=== PATIENT | male | born 1975 | race African-American/Black ===

== ENCOUNTER 2016-12-21 03:42 | Emergency (ER) | payer OTHER ==
[2016-12-21] MEDS ORDERED: Albuterol HFA INHALER* 8 gm MDI INH ONE (04:49)
[2016-12-21] MEDS ORDERED: Albuterol/Ipratropium NEB.SOL* Albuterol 2.5 MG/Ipratropium 0.5 MG 3 ML INH ONE (04:49)
[2016-12-21 05:49] VITALS: BP 130/87
--- NOTE | 2016-12-31 14:41 | ED ---
Rohini Montiel Alfonso, scribed for Jennifer Hollingsworth MD on 12/21/16 at 0441 . Complex/Multi-Sys Presentation - HPI Summary HPI Summary: This patient is a 41 year old M presenting to [facility] with a chief complaint of chest tightness since 4 hours ago. He reports finishing his inhaler prescription. The patient rates the pain 0/10 in severity. Symptoms aggravated by weather. Symptoms alleviated by nothing. Patient reports chills, coughing, and wheezing. Patient denies fever. Tobacco abuse disorder. PMHx includes asthma. - History Of Current Complaint Chief Complaint: EDShortnessOfBreath Time Seen by Provider: 12/21/16 04:25 Hx Obtained From: Patient Onset/Duration: Sudden Onset, Lasting Hours - 4, Still Present Timing: Constant Aggravating Factor(s): weather Alleviating Factor(s): nothing Associated Signs And Symptoms: Positive: Other - reports chills, coughing, and wheezing. Patient denies fever - Allergies/Home Medications Allergies/Adverse Reactions: Allergies Allergy/AdvReac Type Severity Reaction Status Date / Time Fish Allergy Allergy Severe Swelling Verified 12/21/16 03:46 Of Face,Lips,& Throat Peanut-containing Drug Allergy Severe Swelling Verified 12/21/16 03:46 Products Of Face,Lips,& Throat Nuts Allergy Swelling Uncoded 12/21/16 03:46 Of Face,Lips,& Throat Sea Food Allergy Swelling Uncoded 12/21/16 03:46 Of Face,Lips,& Throat PMH/Surg Hx/FS Hx/Imm Hx Endocrine/Hematology History: Denies: Hx Anticoagulant Therapy, Hx Diabetes, Hx Thyroid Disease Cardiovascular History: Denies: Hx Hypertension, Hx Pacemaker/ICD Respiratory History: Reports: Hx Asthma, Hx Seasonal Allergies Denies: Hx Chronic Obstructive Pulmonary Disease (COPD) GI History: Denies: Hx Ulcer History: Denies: Hx Renal Disease Sensory History: Denies: Hx Hearing Aid Neurological History: Denies: Hx Dementia, Hx Seizures Psychiatric History: Denies: Hx Panic Disorder, Hx Substance Abuse - Immunization History Date of Tetanus Vaccine: 2004 Date of Influenza Vaccine: never Infectious Disease History: No Infectious Disease History: Denies: Hx Clostridium Difficile, Hx Hepatitis, Hx Human Immunodeficiency Virus (HIV), Hx of Known/Suspected MRSA, Hx Shingles, Hx Tuberculosis, Hx Known/ Suspected VRE, Hx Known/Suspected VRSA, History Other Infectious Disease, Traveled Outside the [place] in Last 30 Days - Family History Known Family History: Positive: Diabetes Negative: Cardiac Disease, Hypertension, Respiratory Disease - Social History Alcohol Use: Rare Hx Substance Use: Yes Substance Use Type: Reports: Marijuana Substance Use Comment - Amount & Last Used: daily Hx Tobacco Use: Yes Smoking Status (MU): Former Smoker Type: Cigarettes Amount Used/How Often: 3-4 CIGS A DAY Length of Time of Smoking/Using Tobacco: OFF AN ON 16+ YEARS Have You Smoked in the Last Year: Yes Review of Systems Positive: Chills. Negative: Fever Positive: Cough, Other - chest tightness, wheezing All Other Systems Reviewed And Are Negative: Yes Physical Exam - Summary Physical Exam Summary: General: Well appearing, no pain distress Skin: Warm, Skin Color Reflects Adequate Perfusion, Dry Eyes: EOMI, RAS ENT: Pharynx normal, TMs normal Neck: Supple, nontender Respiratory: Breath sounds present, no rhonchi, no rales, no tachypnea, Expiratory wheezing diffusely Cardiovascular: RRR, no murmur, no rub, no gallop Abdomen: Soft, nontender, Non-distended, no guarding, no rebound Bowel: Present Musculoskeletal: JARRET, No edema Neuro: Sensory/motor intact, A&Ox3, CN intact 2-12 Psych: Affect/mood appropriate Triage Information Reviewed: Yes Vital Signs On Initial Exam: Initial Vitals Temp Pulse Resp BP Pulse Ox 98.1 F 106 20 136/84 95 12/21/16 03:44 12/21/16 03:44 12/21/16 03:44 12/21/16 03:44 12/21/16 03:44 Vital Signs Reviewed: Yes - [place] Coma Scale Coma Scale Total: 15 Diagnostics - Vital Signs Vital Signs Temp Pulse Resp BP Pulse Ox 12/21/16 03:44 98.1 F 106 20 136/84 95 - Laboratory Lab Statement: Any lab studies that have been ordered have been reviewed, and results considered in the medical decision making process. Complex Multi-Symp Course/Dx - Diagnoses Provider Diagnoses: Asthma exacerbation Discharge - Discharge Plan Condition: Stable Disposition: HOME Prescriptions: Albuterol/Ipratropium RESP(NF) [Combivent Respimat(NF)] 1 puff INH Q6H PRN #1 aer PRN Reason: Wheezing Patient Education Materials: Asthma (ED) Referrals: Abdulaziz Monroy MD [Primary Care Provider] - 3 Days Additional Instructions: RETURN TO THE EMERGENCY DEPARTMENT FOR CHANGING OR WORSENING SYMPTOMS. The documentation as recorded by the Rohini benedict Alfonso accurately reflects the service I personally performed and the decisions made by me, Jennifer Hollingsworth MD.
== END 2016-12-21 05:49 | disposition home or self-care (01) ==
LOC: ED 03:42
DX: J45.901 Unspecified asthma with (acute) exacerbation (principal); F12.90 Cannabis use, unspecified, uncomplicated; Z72.0 Tobacco use
CPT/HCPCS: 99282; A9270-GY

== ENCOUNTER → 2018-09-18 12:08 | Emergency (ER) | payer OTHER ==
[~2018-09-18 12:08] MED LIST: Albuterol HFA INHALER* 8 gm MDI INH ONE; Albuterol/Ipratropium RESP(NF) MDI (Combivent Respimat) INH ONE; predniSONE TAB* 50 MG PO ONE
--- NOTE | 2018-09-18 14:34 | ED ---
Respiratory - HPI Summary HPI Summary: Pt is a 43 y/o M presenting to the ED with a chief complaint of SOB, and wheezing due to running out of his inhalers. He states he has been out of his inhaler for 2-3 days, because he has been having to use it more d/t allergy season, and insurance will not cover it because it is too soon for him to refill the Rx. He states the inhaler that helps him most is the Combivent, and the out of pocket expense for this is $500. He denies sore throat, headache, dizziness, chest pain, or fever. He states he has had asthma since he was a small child. He states he has tried pills such as singulair before, but girlfriend with him states that he doesn't remember to take pills regularly, that carrying the inhaler with him works the best for his asthma. Pt has never seen a pulmonary doctor. Pt's girlfriend states she doesn't want him to wind up in the ICU like he did before when he went without treatment. Pt has an Advair diskus also, which he uses "sometimes". I attempted much education about asthma, anti-inflammatory meds such as singulair, and inhaled steroids. Pt still likes the idea of his inhalers the best for his asthma treatment. He notes that he has a nebulizer at home and "plenty of medication for that", as well as Advair, Proair, and Combivent, but the nebulizer "does not work for him" as he is usually walking to his destinations, and is not home to do treatments. Pt did use his nebulizer this am prior to coming to the ED. Pt's girlfriend is upset upon initial evaluation, presumably because pt had to wait in the WR prior to being seen in the conference room with me, due to multiple acute pts in the ED. Pt is not visibly SOB, speaks in full sentences, can walk without obvious SOB at the time he is seen by me. Vital signs at triage: BP 117/75, HR 84bpm, SaO2 93% with 20 respirations per minute. Home Medications-home nebulizer (used this am), advair (doesn't use regularly) , albuterol inhaler, combivent inhaler. Pt has run out of the albuterol inhaler and the combivent inhaler (last used 2 days ago). Prednisone listed below was given in ED, and pt is to continue it x 5 days. Medication Instructions Recorded Confirmed Type predniSONE TAB* [Deltasone TAB*] 50 mg PO DAILY #5 tab 09/18/18 Rx - History of Current Complaint Chief Complaint: EDShortnessOfBreath Stated Complaint: TROUBLE BREATHING PER PT Time Seen by Provider: 09/18/18 14:08 Hx Obtained From: Patient, Family/[employer] - girlfriend Onset/Duration: Gradual Onset, Lasting Days, Still Present Timing: Constant Initial Severity: Moderate Current Severity: Moderate Pain Intensity: 0 Character: Wheezing, Dyspnea on Exertion Sputum Amount: None Aggravating Factor(s): Weather Change Alleviating Factor(s): MDI (Frequency Of Use) - is overusing until he ran out 2 days ago. Insurance won't cover for several days. Is wheezing now and needs his inhalers. Associated Signs and Symptoms: SOB - Risk Factors Status Asthmaticus Risk Factors: Rx Non-Compliance - overuse of inhalers, misues of Advair, doesn't take pills, Smoking - Allergy/Home Medications Allergies/Adverse Reactions: Allergies Allergy/AdvReac Type Severity Reaction Status Date / Time Fish Containing Products Allergy Swelling Verified 09/18/18 12:13 Of Face,Lips,& Throat nut - unspecified Allergy Swelling Verified 09/18/18 12:13 Of Face,Lips,& Throat Nuts Allergy Swelling Uncoded 06/29/18 09:31 Of Face,Lips,& Throat Sea Food Allergy Swelling Uncoded 06/29/18 09:31 Of Face,Lips,& Throat PMH/Surg Hx/FS Hx/Imm Hx Previously Healthy: No Endocrine/Hematology History: Denies: Hx Anticoagulant Therapy, Hx Diabetes, Hx Thyroid Disease Cardiovascular History: Denies: Hx Hypertension, Hx Pacemaker/ICD Respiratory History: Reports: Hx Asthma, Hx Seasonal Allergies Denies: Hx Chronic Obstructive Pulmonary Disease (COPD) GI History: Denies: Hx Ulcer History: Denies: Hx Renal Disease Sensory History: Denies: Hx Hearing Aid Neurological History: Denies: Hx Dementia, Hx Seizures Psychiatric History: Denies: Hx Panic Disorder, Hx Substance Abuse - Surgical History Surgical History: None - Immunization History Date of Tetanus Vaccine: 2004 Date of Influenza Vaccine: never Infectious Disease History: No Infectious Disease History: Denies: Hx Clostridium Difficile, Hx Hepatitis, Hx Human Immunodeficiency Virus (HIV), Hx of Known/Suspected MRSA, Hx Shingles, Hx Tuberculosis, Hx Known/ Suspected VRE, Hx Known/Suspected VRSA, History Other Infectious Disease, Traveled Outside the [place] in Last 30 Days - Family History Known Family History: Positive: Diabetes, Other - no fam hx of asthma Negative: Cardiac Disease, Hypertension, Respiratory Disease - Social History Lives: With Family - girlfriend Alcohol Use: Rare Hx Substance Use: Yes Substance Use Type: Reports: Marijuana - smokes it Substance Use Comment - Amount & Last Used: daily Hx Tobacco Use: Yes Smoking Status (MU): Current Some Day Smoker - "1-2" every other day Type: Cigarettes Length of Time of Smoking/Using Tobacco: OFF AN ON 16+ YEARS Have You Smoked in the Last Year: Yes Review of Systems Negative: Fever Negative: Sore Throat Negative: Chest Pain Positive: Shortness Of Breath Gastrointestinal: Negative Genitourinary: Negative Musculoskeletal: Negative Skin: Negative Neurological: Negative - dizziness Negative: Headache Psychological: Normal All Other Systems Reviewed And Are Negative: Yes Physical Exam - Summary Physical Exam Summary: Appearance: well-appearing, no pain distress, well-nourished, comfortable, no respiratory distress when walking from to conference room, O2 sats normal on room air, afebrile Skin: Warm, color reflects adequate perfusion, dry Head: Normal Head/Face inspection, atraumatic Eyes: Conjunctiva clear ENT: Normal inspection, TM's clear, pharynx clear Neck: Supple, no nodes, no JVD Respiratory: Bilateral expiratory wheezes, no respiratory distress, speaking full sentences, ambulates normally, no accessory muscles of respiration, no pursed lip breathing Cardio: RRR, No murmur, pulses normal, brisk capillary refill Abdomen: Soft, nontender Bowel sounds: Present Musculoskeletal: Strength Intact/ROM intact, no calf tenderness, no edema. Psychological: Normal Neuro: Alert, muscle tone normal, no focal deficit Triage Information Reviewed: Yes Vital Signs On Initial Exam: Initial Vitals Temp Pulse Resp BP Pulse Ox 97.5 F 84 20 117/75 93 09/18/18 12:10 09/18/18 12:10 09/18/18 12:10 09/18/18 12:10 09/18/18 12:10 Vital Signs Reviewed: Yes Diagnostics - Vital Signs Vital Signs Temp Pulse Resp BP Pulse Ox 09/18/18 14:01 98.4 F 80 16 130/81 95 09/18/18 12:10 97.5 F 84 20 117/75 93 - Laboratory Lab Statement: Any lab studies that have been ordered have been reviewed, and results considered in the medical decision making process. Re-Evaluation - Re-Evaluation First Eval Re-Evaluation Time: 15:25 Change: Improved Comment: Pt received 2 puffs of an albuterol inhaler. Declines neb because he has it at home. Lungs clear upon re-eval. Pt is ready for discharge. Pt's pharmacy is called. Pt will be able to receive both his albuterol inhaler as well as his combivent inhaler with the way my Rx's are written. Disposition - Course Course Of Treatment: Pt is a 43 y/o M presenting to the ED with a chief complaint of SOB due to running out of his inhalers. He states he has been out of his inhaler for 2-3 days, because he has been having to use it more d/t allergy season, and insurance will not cover it because it is too soon for him to refill the Rx. He denies sore throat, headache, dizziness, chest pain, cough or fever. Pt does not feel he has an infectious process, so no labs or chest xray will be done, and no antibiotics are needed. Will give steroids for the anti-inflammatory effect, in addition to albuterol and combivent inhalers that pt is accustomed to using for his asthma. He notes that he has a nebulizer at home, as well as Advair, Proair, and Combivent, but the nebulizer does not work for him as he is usually walking to his destinations, instead of being home to do treatments. Vital signs at triage: BP 117/75, HR 84bpm, SaO2 93% with 20 respirations per minute. In the ED, the pt received Prednisone 50mg as well as 2 puffs of the albuterol inhaler. Pt is dispensed an albuterol inhaler that was used for him in the ED, for home use. His RX is increased from 1 puff q 4h to 2 puffs q 4 hrs prn. His combivent is also increased to 2 puffs q 4 hrs. Verified with pt's pharmacist that pt will be able to receive both inhalers, although pharmacist is out of stock for the combivent, so he will be able to receive that before 11am tomorrow (09/19/18). [facility] pharmacy did not have any combivent inhalers in stock. Pt declined a combivent neb, stating he had that at home. He is stable without wheezes or SOB after the albuterol inhalations and dose of prednisone 50mg, and will be sent home with a dx of asthma exacerbation. No labs or imaging were done. Pt and girlfriend are agreeable to this. Pt is advised to stop smoking. - Differential Dx - Cardiopulmonary Differential Diagnoses - Cardiopulmonary: Acute Dyspnea, Asthma, Bronchitis, Exacerbation Of COPD, Lower Resp Infection - Diagnoses Provider Diagnoses: Asthma exacerbation, Tobacco use disorder, mild, abuse, Marijuana smoker, Noncompliance with medication treatment due to overuse of medication Discharge - Sign-Out/Discharge Documenting (check all that apply): Patient Departure Patient Received Moderate/Deep Sedation with Procedure: No - Discharge Plan Condition: Stable Disposition: HOME Prescriptions: Albuterol HFA INHALER* [Ventolin HFA Inhaler*] 2 puff INH Q4H PRN #1 mdi PRN Reason: Sob/Wheezing Albuterol/Ipratropium RESP(NF) [Combivent Respimat(NF)] 2 puff INH Q4H PRN #1 aer PRN Reason: Sob/Wheezing LevoCETirizine TAB (NF) [Xyzal TAB (NF)] 5 mg PO DAILY #30 tab Montelukast Sodium TAB* [Singulair TAB*] 10 mg PO DAILY #30 tab predniSONE TAB* [Deltasone TAB*] 50 mg PO DAILY #5 tab Patient Education Materials: Asthma (ED) Referrals: Dolly Mendoza MD [Medical Doctor] - As Soon As Possible Abdulaziz Monroy MD [Primary Care Provider] - 2 Days Additional Instructions: We have given you a dose of your albuterol inhaler while in the ER and dispensed the remainder for you to use at home. Please use 2 puffs every four hours as needed. We have also given you a dose of prednisone. Try the singular and the levocetirizine pills also to see if they help your asthma. Your insurance should allow the prescriptions written today. Return to the ER if new or worsening symptoms. - Billing Disposition and Condition Condition: STABLE Disposition: Home - Attestation Statements Document Initiated by Leanderibnancy: Yes Documenting Scribe: Iris Joy Provider For Whom Ksenia is Documenting (Include Credential): Dr. Gloria Carter MD. Scribe Attestation: Iris Montiel, scribed for Dr. Gloria Carter MD. on 09/19/18 at 2346. Scribe Documentation Reviewed: Yes Provider Attestation: The documentation as recorded by the leanderibe, Iris Joy accurately reflects the service I personally performed and the decisions made by me, Dr. Gloria Carter MD. Status of Scribe Document: Viewed
[2018-09-18 15:21] VITALS: BP 131/86
== END | disposition home or self-care (01) ==
LOC: ED 12:08
DX: J45.901 Unspecified asthma with (acute) exacerbation (principal); Z72.0 Tobacco use; F12.10 Cannabis abuse, uncomplicated; Z91.19 Patient's noncompliance with other medical treatment and regimen
CPT/HCPCS: 99282; A9270-GY; J7512

== ENCOUNTER 2018-12-08 22:15 | Emergency (ER) | payer OTHER ==
[2018-12-08] MEDS ORDERED: predniSONE TAB* 20 MG PO ONE (22:41)
[2018-12-08] MEDS ORDERED: Albuterol 0.5% CONC NEB.SOL* 5 MG/ML 20 ml BOT INH ONE (22:41)
--- NOTE | 2018-12-08 22:48 | ED ---
Respiratory - HPI Summary HPI Summary: Patient is a 43 y/o M w/ Hx of asthma with complaints of SOB, chest congestion, and soreness at ribs area. Sx have been present for the past week. Patient has been taking his albuterol inhaler every 25 minutes. He has advair as well, which he has just started using 1-2 times daily. He is a current smoker. Patient denies any other medical issues. On triage, associated severity is rated 8/10, nothing is noted to aggravate/alleviate Sx. Home medications and allergies are reviewed. - History of Current Complaint Chief Complaint: EDAsthma Stated Complaint: ASTHMA Time Seen by Provider: 12/08/18 22:35 Hx Obtained From: Patient Onset/Duration: Lasting Weeks, Still Present Current Severity: Severe Pain Intensity: 8 Aggravating Factor(s): Nothing Alleviating Factor(s): Nothing Associated Signs and Symptoms: SOB, Chest Pain - soreness at ribs - Allergy/Home Medications Allergies/Adverse Reactions: Allergies Allergy/AdvReac Type Severity Reaction Status Date / Time Fish Containing Products Allergy Swelling Verified 12/08/18 22:18 Of Face,Lips,& Throat nut - unspecified Allergy Swelling Verified 12/08/18 22:18 Of Face,Lips,& Throat Nuts Allergy Swelling Uncoded 12/08/18 22:18 Of Face,Lips,& Throat Sea Food Allergy Swelling Uncoded 12/08/18 22:18 Of Face,Lips,& Throat Home Medications: Home Medications Albuterol inh POWDER (NF) [Proair Respiclick] 1 puff INH Q4H PRN 12/08/18 [ History Confirmed 12/08/18] PMH/Surg Hx/FS Hx/Imm Hx Endocrine/Hematology History: Denies: Hx Anticoagulant Therapy, Hx Diabetes, Hx Thyroid Disease Cardiovascular History: Denies: Hx Hypertension, Hx Pacemaker/ICD Respiratory History: Reports: Hx Asthma, Hx Seasonal Allergies Denies: Hx Chronic Obstructive Pulmonary Disease (COPD) GI History: Denies: Hx Ulcer History: Denies: Hx Renal Disease Sensory History: Denies: Hx Hearing Aid Neurological History: Denies: Hx Dementia, Hx Seizures Psychiatric History: Denies: Hx Panic Disorder, Hx Substance Abuse - Immunization History Date of Tetanus Vaccine: 2004 Date of Influenza Vaccine: never Infectious Disease History: No Infectious Disease History: Denies: Hx Clostridium Difficile, Hx Hepatitis, Hx Human Immunodeficiency Virus (HIV), Hx of Known/Suspected MRSA, Hx Shingles, Hx Tuberculosis, Hx Known/ Suspected VRE, Hx Known/Suspected VRSA, History Other Infectious Disease, Traveled Outside the [place] in Last 30 Days - Family History Known Family History: Positive: Diabetes, Other - no fam hx of asthma Negative: Cardiac Disease, Hypertension, Respiratory Disease - Social History Alcohol Use: Rare Hx Substance Use: Yes Substance Use Type: Reports: Marijuana - smokes it Substance Use Comment - Amount & Last Used: daily Hx Tobacco Use: Yes Smoking Status (MU): Current Some Day Smoker - "1-2" every other day Type: Cigarettes Amount Used/How Often: 3-4 CIGS A DAY Length of Time of Smoking/Using Tobacco: OFF AN ON 16+ YEARS Have You Smoked in the Last Year: Yes Review of Systems Positive: Chest Pain - soreness at ribs Respiratory: Other - congestion Positive: Shortness Of Breath All Other Systems Reviewed And Are Negative: Yes Physical Exam - Summary Physical Exam Summary: Appearance: Well-appearing, Well-nourished, lying in bed comfortably Skin: Warm, dry, no obvious rash Eyes: sclera anicteric, no conjunctival pallor ENT: mucous membranes moist, pharynx appears normal Neck: Supple, nontender Respiratory: Diffuse, expiratory wheezes with mild impairment of aeration. Cardiovascular: Normal S1, S2. No murmurs. Normal distal pulses in tibial and radial bilaterally. Abdomen: Soft, nontender, normal active bowel sounds present Musculoskeletal: Normal, Strength/ROM Intact Neurological: A&Ox3, awake and alert, mentation is normal, speech is fluent and appropriate Psychiatric: affect is normal, does not appear anxious or depressed Triage Information Reviewed: Yes Vital Signs On Initial Exam: Initial Vitals Temp Pulse Resp BP Pulse Ox 99.7 F 101 16 117/72 93 12/08/18 22:16 12/08/18 22:16 12/08/18 22:16 12/08/18 22:16 12/08/18 22:16 Vital Signs Reviewed: Yes Diagnostics - Vital Signs Vital Signs Temp Pulse Resp BP Pulse Ox 12/08/18 22:16 99.7 F 101 16 117/72 93 - Laboratory Lab Statement: Any lab studies that have been ordered have been reviewed, and results considered in the medical decision making process. Re-Evaluation - Re-Evaluation First Eval Re-Evaluation Time: 00:31 Change: Improved Comment: Patient's Sx are improved after medications. He was discharged to home and will follow up with PCP within three days. Disposition - Course Course Of Treatment: Patient is a 43 y/o M w/ Hx of asthma with complaints of SOB, chest congestion, and soreness at ribs area. Sx have been present for the past week. Patient has been taking his albuterol inhaler every 25 minutes. He has advair as well, which he has just started using 1-2 times daily. He is a current smoker. Patient denies any other medical issues. On physical exam, there are diffuse, expiratory wheezes with mild impairment of aeration. During ED course, patient received prednisone, 40 mg PO, and albuterol. He reports improvement in Sx after medications. Patient was discharged to home and advised to follow up with PCP within three days. - Diagnoses Provider Diagnoses: Asthma exacerbation Discharge ED - Sign-Out/Discharge Documenting (check all that apply): Patient Departure - discharge Patient Received Moderate/Deep Sedation with Procedure: No - Discharge Plan Condition: Improved Disposition: HOME Prescriptions: predniSONE TAB* [Deltasone 20 MG TAB*] 40 mg PO DAILY 5 Days #10 tab Patient Education Materials: Asthma (ED), How to Stop Smoking (ED) Referrals: Abdulaziz Monroy MD [Primary Care Provider] - 3 Days - Billing Disposition and Condition Condition: IMPROVED Disposition: Home - Attestation Statements Document Initiated by Ksenia: Yes Documenting Scribe: BREE OZUNA Provider For Whom Ksenia is Documenting (Include Credential): MELQUIADES MENDIETA MD Scribe Attestation: IBREE, scribed for MELQUIADES MENDIETA MD on 12/10/18 at 0517. Scribe Documentation Reviewed: Yes Provider Attestation: The documentation as recorded by the BREE benedict accurately reflects the service I personally performed and the decisions made by me, MELQUIADES MENDIETA MD Status of Scribe Document: Viewed
[2018-12-09] MEDS ORDERED: A lbuterol Hfa (PREPAK) 1 MDI - ED TAKE HOME DISPENSING ONLY INHH SCH (01:00)
[2018-12-09] MEDS ORDERED: Albuterol HFA INHALER* 8 gm MDI INH SCH (01:00)
[2018-12-09 01:48] VITALS: BP 129/82
== END 2018-12-09 00:33 | disposition home or self-care (01) ==
LOC: ED 22:15
DX: J45.901 Unspecified asthma with (acute) exacerbation (principal); R07.81 Pleurodynia; Z91.018 Allergy to other foods; Z91.013 Allergy to seafood; Z72.0 Tobacco use
CPT/HCPCS: 99282; A9270-GY; J7512; J7611

== ENCOUNTER 2019-04-03 17:04 | Emergency (ER) | payer OTHER ==
[2019-04-03] MEDS ORDERED: Albuterol/Ipratropium NEB.SOL* Albuterol 2.5 MG/Ipratropium 0.5 MG 3 ML INH ONE ×3 (17:23→19:53)
[2019-04-03] MEDS ORDERED: methylPREDNISolone 125 MG* 2 ML VIAL IV ONE (17:24)
[2019-04-03] MEDS ORDERED: Magnesium Sulfate 2 GM IV* 2 GM/50 ML BAG IVPB ONE (17:25)
[2019-04-03 17:56] LABS: ABS Eosinophils 0.3 10^3/ul (0-0.6); ABS Lymphocytes 1.5 10^3/ul (1.0-4.8); ABS Monocytes 0.9 10^3/ul (0-0.8); ABS Neutrophils 6.6 10^3/ul (1.5-7.7); Eosinophil % 3.3 %; Hematocrit 37 % (42-52); Hemoglobin 12.6 g/dL (14.0-18.0); Lymphocyte % 16.2 %; Mean Corpuscular HGB Conc 34 g/dL (31-36); Mean Corpuscular Hemoglobin 30 pg (27-31); Mean Corpuscular Volume 88 fL (80-94); Mean Platelet Volume 7.2 fL (7.4-10.4); Platelet Count 241 10^3/uL (150-450); Red Blood Count 4.19 10^6 /uL (4.18-5.48); Red Cell Distribution Width 13 % (10-15); White Blood Count 9.4 10^3/uL (3.5-10.8)
--- NOTE | 2019-04-03 17:58 | ED ---
Shortness of Breath - HPI Summary HPI Summary: 44-year-old male presents with shortness breath for the past 3 days. He states he has history of asthma. He states that he has a cough. No fevers. is also sick. Has had sinus congestion. No abdominal pain. No nausea and no vomiting. He states she's been using K2 and marijuana which is making symptoms worse. He is a smoker. He denies any chest pain. He states he occasionally gets some tightness when he coughs. No sore throat. No pain or swelling to his legs. No recent travel. - History of Current Complaint Chief Complaint: EDShortnessOfBreath Time Seen by Provider: 04/03/19 17:17 - Allergy/Home Medications Allergies/Adverse Reactions: Allergies Allergy/AdvReac Type Severity Reaction Status Date / Time Fish Containing Products Allergy Swelling Verified 04/03/19 17:24 Of Face,Lips,& Throat nut - unspecified Allergy Swelling Verified 04/03/19 17:24 Of Face,Lips,& Throat Nuts Allergy Swelling Uncoded 04/03/19 17:24 Of Face,Lips,& Throat Sea Food Allergy Swelling Uncoded 04/03/19 17:24 Of Face,Lips,& Throat Home Medications: Home Medications Albuterol 2.5MG/3ML (0.083%)* [Ventolin 2.5 MG/3 ML NEB.FELIX*] 2.5 mg INH Q4H PRN 04/03/19 [History Confirmed 04/03/19] PMH/Surg Hx/FS Hx/Imm Hx Endocrine/Hematology History: Denies: Hx Anticoagulant Therapy, Hx Diabetes, Hx Thyroid Disease Cardiovascular History: Denies: Hx Hypertension, Hx Pacemaker/ICD Respiratory History: Reports: Hx Asthma, Hx Seasonal Allergies Denies: Hx Chronic Obstructive Pulmonary Disease (COPD) GI History: Denies: Hx Ulcer History: Denies: Hx Renal Disease Sensory History: Denies: Hx Hearing Aid Neurological History: Denies: Hx Dementia, Hx Seizures Psychiatric History: Denies: Hx Panic Disorder, Hx Substance Abuse - Immunization History Date of Tetanus Vaccine: 2004 Date of Influenza Vaccine: never Immunizations Up to Date: Yes Infectious Disease History: No Infectious Disease History: Denies: Hx Clostridium Difficile, Hx Hepatitis, Hx Human Immunodeficiency Virus (HIV), Hx of Known/Suspected MRSA, Hx Shingles, Hx Tuberculosis, Hx Known/ Suspected VRE, Hx Known/Suspected VRSA, History Other Infectious Disease, Traveled Outside the [place] in Last 30 Days - Family History Known Family History: Positive: Diabetes, Other - no fam hx of asthma Negative: Cardiac Disease, Hypertension, Respiratory Disease - Social History Alcohol Use: Rare Hx Substance Use: Yes Substance Use Type: Reports: Marijuana, Synthetic Drugs Substance Use Comment - Amount & Last Used: daily Hx Tobacco Use: Yes Smoking Status (MU): Current Some Day Smoker Type: Cigarettes Amount Used/How Often: 3-4 CIGS A DAY Length of Time of Smoking/Using Tobacco: OFF AN ON 16+ YEARS Have You Smoked in the Last Year: Yes Review of Systems Negative: Fever Negative: Chest Pain Positive: Shortness Of Breath, Cough Negative: Abdominal Pain All Other Systems Reviewed And Are Negative: Yes Physical Exam Triage Information Reviewed: Yes Vital Signs On Initial Exam: Initial Vitals Temp Pulse Resp BP Pulse Ox 99.6 F 110 20 83/66 93 04/03/19 17:09 04/03/19 17:04/03/19 17:04/03/19 17:04/03/19 17:09 Vital Signs Reviewed: Yes Appearance: Positive: Well-Appearing Skin: Positive: Warm, Dry Head/Face: Positive: Normal Head/Face Inspection Eyes: Positive: Normal, EOMI, RAS, Conjunctiva Clear ENT: Positive: Pharynx normal, TMs normal Respiratory/Lung Sounds: Positive: Breath Sounds Present, Rales, Wheezes Cardiovascular: Positive: Normal, RRR Abdomen Description: Positive: Nontender, Soft Bowel Sounds: Positive: Present Musculoskeletal: Positive: Normal Neurological: Positive: Normal Psychiatric: Positive: Normal Procedures - Sedation Patient Received Moderate/Deep Sedation with Procedure: No Diagnostics - Vital Signs Vital Signs Temp Pulse Resp BP Pulse Ox 04/03/19 17:31 108 18 97 04/03/19 17:09 99.6 F 110 20 83/66 93 - Laboratory Lab Results: Lab Results 04/03/19 Range/Units 17:39 WBC 9.4 (3.5-10.8) 10^3/uL RBC 4.19 (4.18-5.48) 10^6 /uL Hgb 12.6 L (14.0-18.0) g/dL Hct 37 L (42-52) % MCV 88 (80-94) fL MCH 30 (27-31) pg MCHC 34 (31-36) g/dL RDW 13 (10-15) % Plt Count 241 (150-450) 10^3/uL MPV 7.2 L (7.4-10.4) fL Neut % (Auto) 70.6 % Lymph % (Auto) 16.2 % [place] % (Auto) 9.4 % Eos % (Auto) 3.3 % Baso % (Auto) 0.5 % Absolute Neuts (auto) 6.6 (1.5-7.7) 10^3/ul Absolute Lymphs (auto) 1.5 (1.0-4.8) 10^3/ul Absolute Monos (auto) 0.9 H (0-0.8) 10^3/ul Absolute Eos (auto) 0.3 (0-0.6) 10^3/ul Absolute Basos (auto) 0.0 (0-0.2) 10^3/ul Absolute Nucleated RBC 0.0 10^3/ul Nucleated RBC % 0.0 Result Diagrams: 04/03/19 17:39 04/03/19 17:39 Lab Statement: Any lab studies that have been ordered have been reviewed, and results considered in the medical decision making process. - Radiology chest Radiology Interpretation Completed By: ED Physician Summary of Radiographic Findings: pneumonia - EKG No standard instances Cardiac Rate: Tachycardia EKG Rhythm: Sinus Tachycardia EKG Comparison: No Significant Change Summary of EKG Findings: sinus tachycardia Re-Evaluation - Re-Evaluation First Eval Re-Evaluation Time: 18:21 Comment: feeling better, still wheezing Second Eval Re-Evaluation Time: 20:59 Change: Improved Comment: feels better, would like to go home, Course/Dx - Course Course Of Treatment: 44-year-old male presents with shortness breath for the past 3 days. He states he has history of asthma. He states that he has a cough. No fevers. is also sick. Has had sinus congestion. No abdominal pain. No nausea and no vomiting. He states she's been using K2 and marijuana which is making symptoms worse. He is a smoker. He denies any chest pain. He states he occasionally gets some tightness when he coughs. No sore throat. No pain or swelling to his legs. No recent travel. On exam wheezes and rales noted. Gave breathing treatment with improvement. wbc normal. CRP normal. Chest x-ray shows pneumonia. EKG shows sinus rhythm. Gave solumedrol and magnesium and is feeling better. Gave Rocephin and azithromycin for pneumonia. discussed patient wants to try treating symptoms at home. told if develop worsening sob to return. patient understand and agrees with plan. - Diagnoses Differential Diagnosis/HQI/PQRI: Positive: Asthma, Bronchitis, Pneumonia Provider Diagnoses: Asthma exacerbation, Pneumonia Discharge ED - Sign-Out/Discharge Documenting (check all that apply): Patient Departure - Discharge Plan Condition: Good Disposition: HOME Prescriptions: Azithromycin TAB* [Zithromax TAB (Z-EDIE) 250 mg #6 tabs] 250 mg PO DAILY #4 tab predniSONE 50 mg TAB [Deltasone 50 mg TAB] 50 mg PO DAILY #4 tab Patient Education Materials: Pneumonia (ED) Referrals: Abdulaziz Monroy MD [Primary Care Provider] - Additional Instructions: Use inhaler up to two puffs every 4 hours for cough and wheezing Take steroid once a day for 4 more days starting tomorrow Take antibiotic once daily starting tomorrow for 4 days Take Tylenol or ibuprofen for pain every 6 hours Follow up with primary within 5 days Return to ED if develop severe shortness of breath, worsening chest pain, or any new or worsening symptoms - Billing Disposition and Condition Condition: GOOD Disposition: Home
[2019-04-03 18:16] LABS: Albumin 3.5 g/dL (3.2-5.2); Albumin/Globulin Ratio 1.2 (1-3); BUN/Creatinine Ratio 12.4 (8-20); C Reactive Protein 25.81 mg/L (<8.01); Calcium 8.6 mg/dL (8.6-10.3); EGFR African American 85.7 (>60); EGFR Non-African American 70.8 (>60); Globulin 2.9 g/dL (2-4); Magnesium 2.1 mg/dL (1.9-2.7); Potassium 3.4 mmol/L (3.5-5.0); Total Bilirubin 0.2 mg/dL (0.2-1.0); Total Protein 6.4 g/dL (6.4-8.9)
[2019-04-03 19:41] LABS: Influenza A Molecular NEGATIVE (Negative); Influenza B Molecular NEGATIVE (Negative)
[2019-04-03] MEDS ORDERED: cefTRIAXone(*) 1 GM in NS 0.9% 50 ML* 50 ML IVPB ONE (19:49)
[2019-04-03] MEDS ORDERED: Azithromycin 500 mg/250 ml NS 500 MG/250 ML BAG IVPB ONE (19:49)
[2019-04-03] MEDS ORDERED: A lbuterol Hfa (PREPAK) 1 MDI - ED TAKE HOME DISPENSING ONLY INHH ONE (20:58)
[2019-04-03 22:01] VITALS: BP 132/88
== END 2019-04-03 22:00 | disposition home or self-care (01) ==
LOC: ED 17:04
DX: J18.9 Pneumonia, unspecified organism (principal); J45.901 Unspecified asthma with (acute) exacerbation; F17.210 Nicotine dependence, cigarettes, uncomplicated
CPT/HCPCS: 36415; 71046; 80053; 83605; 83735; 83880; 84484; 85025; 86140; 87040; 93005; 96365; 96366; 96367; 96375; 99283; A9270-GY; J0456; J0696; J2930; J3475